=== PATIENT | male | born 1960 | race Asian ===

== ENCOUNTER 2019-05-31 06:50 | Outpatient (CLI) | payer MEDICAID ==
[2019-05-31] MEDS ORDERED: REGADENOSON 0.4 MG/5 ML SYRINGE ONE (07:08)
== END 2019-05-31 23:59 | disposition home or self-care (01) ==
LOC: CVU 06:50 → CFH 23:59
PROVIDERS: ATTEND Nurse Practitioner Family
DX: I65.23 Occlusion and stenosis of bilateral carotid arteries (principal); R07.9 Chest pain, unspecified; I10 Essential (primary) hypertension; E11.9 Type 2 diabetes mellitus without complications
CPT/HCPCS: 78452; 93017; 93880; A9502; J2785